=== PATIENT | male | born 1990 | race Caucasian/White ===

== ENCOUNTER 2017-01-17 06:31 | Emergency (ER) | payer MEDICAID ==
[2017-01-17 06:37] VITALS: TEMP 98.1
--- NOTE | 2017-01-17 06:43 | CPEKG ---
Heart Rate: 60 RR Interval: 1000 P-R Interval: 208 QRSD Interval: 100 QT Interval: 420 QTC Interval: 420 P [place]: 60 QRS [place]: 5 T Wave [place]: 77 EKG Severity - NORMAL ECG - EKG Impression: SINUS RHYTHM Electronically Signed By: Estuardo Oliver 17-Jan-2017 09:06:20
[2017-01-17 06:56] LABS: % IMMATURE GRANULYOCYTES 0.3 % (0.0-1.1); ABSOLUTE IMMATURE GRANULOCYTES 0.03 10^3/uL (0.00-0.10); ADD DIFF? NO; ADD MORPH? NO; ADD SCAN? NO; ATYPICAL LYMPHOCYTE FLAG 10 (0-99); FRAGMENT RBC FLAG 0 (0-99); HEMATOCRIT 47.3 % (40.0-51.0); HEMOGLOBIN 16.1 g/dL (13.7-17.5); LEFT SHIFT FLG 0 (0-99); LIPEMIA HEMOLYSIS FLAG 90 (0-99); MEAN CELL HEMOGLOBIN 31.2 pg (27.9-34.1); MEAN CELL VOLUME 91.7 fL (81.5-99.8); MEAN PLATELET VOLUME 10.8 fL (8.7-11.7); PLATELET CLUMPS FLAG 30 (0-99); PLATELET COUNT 319 10^3/uL (150-400); RED BLOOD CELL COUNT 5.16 10^6/uL (4.40-6.38); RED CELL DISTRIBUTION WIDTH 12.2 % (11.5-15.2)
--- NOTE | 2017-01-17 07:13 | EDPHY ---
H & P Time Seen by Provider: 01/17/17 07:12 HPI/ROS: Chief complaint. Chest pain, nausea vomiting HPI. 26-year-old male here by EMS with chest pain that began at 5:00 a.m.. He describes the pain is central in his chest and described as pain. It radiates to his abdomen. It is worse with movement. Nausea and vomiting in the ambulance. Slight shortness of breath. No similar symptoms previously. No fever, cough, leg symptoms. No significant past medical history ROS Constitutional. no fever/chills, no weakness Eyes. no problems with vision ENT. no sore throat, no nasal drainage Cardiovascular. Chest pain Respiratory. Shortness of breath Abdominal. Epigastric pain with nausea and vomiting . no problems urinating MS. no calf pain/swelling, no neck/back pain, no joint pain Skin. no rash Lymph. no swollen glands Neuro. no headache, no dizziness, no difficulty walking or with speech Past Medical/Surgical History: Healthy Family history significant only for cancer Social History: Single, homeless, smoker, denies recent alcohol Smoking Status: Current every day smoker Physical Exam: General Appearance: Alert well-developed male mild distress vital signs are stable Eyes: Pupils equal and round no pallor or injection. ENT, Mouth: Mucous membranes are moist. Respiratory: There are no retractions, lungs are clear to auscultation. Cardiovascular: Regular rate and rhythm. Gastrointestinal: Abdomen is soft and tender in the epigastrium, no masses, bowel sounds normal. Neurological: Awake and alert, sensory and motor exams grossly normal. Skin: Warm and dry, no rashes. Musculoskeletal: Neck is supple nontender. Extremities symmetrical, full range of motion. Psychiatric: Patient is oriented X 3, there is no agitation. Constitutional: Initial Vital Signs Temperature (C) 36.7 C 01/17/17 06:36 Heart Rate 63 01/17/17 06:36 Respiratory Rate 17 01/17/17 06:36 Blood Pressure 122/84 H 01/17/17 06:36 O2 Sat (%) 99 01/17/17 06:36 O2 Delivery Mode Room Air Allergies/Adverse Reactions: No Known Allergies Allergy (Unverified 01/17/17 06:36) Home Medications: Medication Instructions Recorded Albuterol Hfa Anes Only [Proair 2 puffs IH QID PRN #1 mdi 01/17/17 Hfa Icu (*)] Medical Decision Making - Diagnostics EKG Interpretation: EKG interpreted by me shows normal sinus rhythm with normal interval and axis. QRS is normal there is no significant ST elevation or depression. No arrhythmia. QRS is otherwise normal. Rate is 60 Imaging: Imaging Impressions Chest X-Ray 01/17/17 06:38 Impression: No acute findings in the chest. Chest x-ray interpreted by me shows no evidence for pneumonia or pneumothorax Procedures: IV normal saline, monitor ED Course/Re-evaluation: Re-evaluation 8:30 a.m.--patient feeling better. No nausea or vomiting Repeat troponin Re-evaluation 10:00 a.m. patient is stable. Patient and I discussed imaging lab EKG findings, treatment plan including criteria for return importance of follow- up further evaluation. He expresses understanding and agreement Differential Diagnosis: I considered acute coronary syndrome, pulmonary embolus, pneumonia, pancreatitis - Data Points Laboratory Results: Laboratory Results 01/17/17 06:47 01/17/17 06:47 01/17/17 01/17/17 01/17/17 08:40 06:47 06:47 WBC RBC Hgb Hct MCV MCH MCHC RDW Plt Count MPV Neut % (Auto) Lymph % (Auto) [place] % (Auto) Eos % (Auto) Baso % (Auto) Nucleat RBC Rel Count Absolute Neuts (auto) Absolute Lymphs (auto) Absolute Monos (auto) Absolute Eos (auto) Absolute Basos (auto) Absolute Nucleated RBC Immature Gran % Immature Gran # D-Dimer < 0.27 ug/mLFEU ug/mLFEU (0.00-0.50) Sodium Potassium Chloride Carbon Dioxide Anion Gap BUN Creatinine Estimated GFR Glucose Calcium Troponin I < 0.012 ng/mL ng/mL (0-0.034) Lipase 57.0 IU/L IU/L (23-300) 01/17/17 01/17/17 06:47 06:47 WBC 11.05 10^3/uL H 10^3/uL (3.80-9.50) RBC 5.16 10^6/uL 10^6/uL (4.40-6.38) Hgb 16.1 g/dL g/dL (13.7-17.5) Hct 47.3 % % (40.0-51.0) MCV 91.7 fL fL (81.5-99.8) MCH 31.2 pg pg (27.9-34.1) MCHC 34.0 g/dL g/dL (32.4-36.7) RDW 12.2 % % (11.5-15.2) Plt Count 319 10^3/uL 10^3/uL (150-400) MPV 10.8 fL fL (8.7-11.7) Neut % (Auto) 57.4 % % (39.3-74.2) Lymph % (Auto) 33.7 % % (15.0-45.0) [place] % (Auto) 7.6 % % (4.5-13.0) Eos % (Auto) 0.6 % % (0.6-7.6) Baso % (Auto) 0.4 % % (0.3-1.7) Nucleat RBC Rel Count 0.0 % % (0.0-0.2) Absolute Neuts (auto) 6.35 10^3/uL 10^3/uL (1.70-6.50) Absolute Lymphs (auto) 3.72 10^3/uL H 10^3/uL (1.00-3.00) Absolute Monos (auto) 0.84 10^3/uL H 10^3/uL (0.30-0.80) Absolute Eos (auto) 0.07 10^3/uL 10^3/uL (0.03-0.40) Absolute Basos (auto) 0.04 10^3/uL 10^3/uL (0.02-0.10) Absolute Nucleated RBC 0.00 10^3/uL 10^3/uL (0-0.01) Immature Gran % 0.3 % % (0.0-1.1) Immature Gran # 0.03 10^3/uL 10^3/uL (0.00-0.10) D-Dimer Sodium 138 mEq/L mEq/L (134-144) Potassium 4.2 mEq/L mEq/L (3.5-5.2) Chloride 102 mEq/L mEq/L (97-110) Carbon Dioxide 20 mEq/l L mEq/l (22-31) Anion Gap 16 mEq/L mEq/L (8-16) BUN 11 mg/dL mg/dL (7-23) Creatinine 1.0 mg/dL mg/dL (0.7-1.3) Estimated GFR > 60 Glucose 107 mg/dL H mg/dL (70-100) Calcium 10.2 mg/dL mg/dL (8.5-10.4) Troponin I < 0.012 ng/mL ng/mL (0-0.034) Lipase Medications Given: Discontinued Medications Sodium Chloride (Ns) 1,000 mls @ 0 mls/hr IV ONCE ONE PRN Reason: Wide Open Stop: 01/17/17 07:23 Last Admin: 01/17/17 07:25 Dose: 1,000 mls Departure - Departure Disposition: Home, Routine, Self-Care Clinical Impression: Chest pain Qualifiers: Chest pain type: unspecified Qualified Code(s): R07.9 - Chest pain, unspecified Condition: Good Instructions: Chest Pain (ED) Additional Instructions: Albuterol inhaler using 2 puffs every 4-6 hours to help with breathing and chest tightness. Return for worsening symptoms. Recheck at [facility] in 2 days if not improving Referrals: Patient,NotPresent [Unknown] - As per Instructions [facility] [Outside] - 2-3 days, if not improved Prescriptions: Albuterol Hfa Anes Only [Proair Hfa Icu (*)] 2 puffs IH QID PRN #1 mdi PRN Reason: Short Of Breath/Dyspnea
[2017-01-17 07:22] LABS: ANION GAP 16 mEq/L (8-16); CALCIUM 10.2 mg/dL (8.5-10.4); CARBON DIOXIDE 20 mEq/l (22-31); CHLORIDE 102 mEq/L (97-110); GLOMERULAR FILTRATION RATE > 60; GLUCOSE 107 mg/dL (70-100); POTASSIUM 4.2 mEq/L (3.5-5.2); SODIUM 138 mEq/L (134-144)
[2017-01-17] MEDS ORDERED: NS 1,000 ML IV ONE (07:22)
[2017-01-17 07:34] LABS: TROPONIN I < 0.012 ng/mL (0-0.034)
[2017-01-17 09:08] VITALS: RESP 14
[2017-01-17 10:16] VITALS: BP 104/70; PULSE 60; O2SAT 96
== END 2017-01-17 10:15 | disposition home or self-care (01) ==
DX: R07.9 Chest pain, unspecified (principal); F17.200 Nicotine dependence, unspecified, uncomplicated